=== PATIENT | male | born 1945 | race Two or more races ===

== ENCOUNTER 2024-08-11 16:37 | Emergency (ER) | payer OTHER, MEDICAID, SELFPAY ==
[2024-08-11 16:38] VITALS: BP 99/63; PULSE 85; RESP 16; TEMP 37.2; O2SAT 95
--- NOTE | 2024-08-11 17:21 | EDNOTE_ITS ---
ED General RME/HPI General Chief complaint: Wound/Laceration Stated complaint: WORSENING WOUND RIGHT BUTTOCK Time Seen by Provider: 08/11/24 17:10 Arrival date/time: 08/11/24 16:37 This is an 79-year-old male that is brought in by ambulance with complaints of wound to right buttocks. Patient currently living at [facility]. Per EMS patient has been getting treatment for this wound for quite some time but it is not healing and it is getting worse. No reports of fever. Patient has a history of stroke with left hemiparesis/weakness, anxiety, iron deficiency anemia, vascular dementia, hyperlipidemia high blood pressure. Patient on Eliquis and Plavix.. Related Data Home Medications ?Medication ?Instructions ?Recorded ?Confirmed doxazosin 2 mg tablet 2 mg PO HS 06/17/21 06/07/22 atorvastatin 10 mg tablet (Lipitor) 10 mg PO HS 06/07/22 acetaminophen 325 mg tablet 650 mg PO Q6H 06/07/2208/25 bisacodyl 10 mg rectal suppository 10 mg MS Q72H 06/0706/07/22 (Dulcolax (bisacodyl)) divalproex 125 mg tablet,delayed 125 mg PO BID 3 06/07/22 release donepezil 10 mg tablet (Aricept) 10 mg PO HS 06/07/22 06/07/22 magnesium hydroxide 400 mg/5 mL 30 ml PO Q72H 06/07/22 06/07/22 oral suspension (Milk of Magnesia) memantine 10 mg tablet 10 mg PO QDAY 06/07/2206/07 metformin 500 mg tablet 500 mg PO BID 06/07/2206/07 sodium phosphates 19 gram-7 118 ml MS Q72H 06/07/22 gram/118 mL enema (Fleet Enema) tuberculin PPD 1 unit/0.1 mL See Rx Instructions .Rout e .COMPLEX 06/07/22 06/07/22 intradermal injection solution Previous Rx's ?Medication ?Instructions ?Recorded clopidogrel 75 mg tablet (Plavix) 75 mg PO QDAY #30 ta bs 08/10/16 doxycycline hyclate 100 mg tablet 100 mg PO BID 30 day s #60 tabs 08/11/24 Allergies Allergy/AdvReac Type Severity Reaction Status Date / Time Penicillins Allergy Mild Rash Verified 02/22/21 10:32 wool Allergy Unknown Verified 02/22/21 10:32 Review of Systems Review of Systems Systems Reviewed: All systems reviewed, normal except as documented Past Medical History Past Medical History NEUROLOGIC: Positive Neurological Disorders and Cerebrovascular Accident (permanent left side droop) CARDIAC: Positive Cardiac Disorders, Hypercholesterolemia and Hypertension RESPIRATORY: Positive Pneumonia (covid in 2020) GASTROINTESTINAL: Positive Gastrointestinal Disorders, Diverticulitis and Obesity GENITOURINARY: Positive Benign Prostatic Hyperplasia ENDOCRINE: Positive Endocrine Disorders and Diabetes Mellitus Type 2 OTHER HISTORY: Positive Hospitalization and Falls Surgical History SURGICAL: Positive Tonsillectomy Social History SMOKING STATUS: Unknown if ever smoked SUBSTANCE USE: does not use ED Exam General General appearance: Present alert and in no apparent distress Head Head exam: Present atraumatic Eye Eye exam: Present EOMI ENT ENT exam: Present normal exam, normal oropharynx and mucous membranes moist Neck Neck exam: Present normal inspection, full ROM and trachea midline Chest Chest inspection: Present normal inspection and symmetric chest wall rise Respiratory Respiratory exam: Present normal lung sounds bilaterally Cardiovascular Cardiovascular exam: Present regular rate, normal rhythm and normal heart sounds Abdominal Exam Abdominal exam: Present soft Extremities Exam Extremities exam: Present full ROM Back Exam Back exam: Present normal inspection and full ROM Neurological Exam Neurological exam: Present alert and other (very hard of hearing, gen weakness but weaker on left side than right ) Psychiatric Psychiatric exam: Present normal affect and normal mood Skin Skin exam: Present warm and dry (There is a wound that is approximately 4 x 4 cm depth inside is approximately 2 cm and this wound is located on the left buttock there is 2 small wounds right above it 1 is approximately 3 mm and the other 1 is approximately 5 mm) Course Quality Measures none Orders Category Date Time Status COVID-19 Screening Questionnaire NOW Care 08/11/24 19:49 Completed Referral Wound Care Stat Cons 08/11/24 23:02 Active XR sacrum coccyx min 2V Stat Exams 08/11/24 17:25 Completed Blood Culture (Lab) Stat Lab 08/11/24 21:12 Completed CBC Stat Lab 08/11/24 17:55 Completed CRP [C-Reactive Protein] Stat Lab 08/11/24 17:55 Completed Comprehensive Metabolic Panel Stat Lab 08/11/24 17:55 Completed PT [Prothrombin Time with INR] Stat Lab 08/11/24 17:55 Completed Levofloxacin/D5w 750Mg Ivpb [Levaquin Ivpb] Med 08/11/24 22:34 Discontinued 750 mg in 150 ml IV X1 Vancomycin Pharmacy to Dose Med 08/11/24 19:45 Discontinued 1 each IV QDAY Vancomycin/Ns 1 gm Ivpb 200 ml Med 08/11/24 20:30 Discontinued IV Q100M Vital Signs Vital signs: Vital Signs Temperature 98.9 F 08/11/24 16:38 Pulse Rate 85 08/11/24 16:38 Respiratory Rate 16 08/11/24 16:38 Blood Pressure 99/63 08/11/24 16:38 Pulse Oximetry (%) 95 08/11/24 16:38 Oxygen Delivery Method Room Air 08/11/24 16:38 [facility] Patient data External records reviewed:: [facility] previous records Clinical information provided by:: patient Social determinants that could affect healthcare access:: other (specify) (lives in a long term ) Patient has the following chronic illnesses:: see hpi How is presenting disease/condition affected by chronic disease/condition?: e xacerbated by Evaluation data The following diagnostics were reviewed and interpreted by me:: lab results and radiology exam(s) Lab and/or radiology exams considered but not ordered:: none Interpretation Summary: see note Medications Medications considered but not ordered:: none Medication administrations:: Medication Administration History Discontinued Medications Vancomycin/Sodium Chloride (Vancomycin/Ns 1 Gm Ivpb) 200 mls @ 120 mls/hr IV Q100M [facility] Stop: 08/11/24 23:49 Last Infusion: 08/12/24 00:54 Dose: Infused Documented By: Admin: 08/11/24 23:02 Dose: 120 mls/hr Documented By: Infusion: 08/11/24 23:02 Dose: Infused Documented By: Admin: 08/11/24 21:21 Dose: 120 mls/hr Documented By: TREVER Levofloxacin/Dextrose (Levaquin Ivpb) 750 mg in 150 mls @ 100 mls/hr IV X1 ONE Stop: 08/12/24 00:03 Last Infusion: 08/12/24 03:00 Dose: Infused Documented By: Admin: 08/12/24 00:53 Dose: 100 mls/hr Documented By: TREVER Pharmacy Consult (Vancomycin Pharmacy To Dose 1 Each Each) 1 each IV QDAY [facility] Stop: 09/10/24 19:44 see [facility] Consultations Consultation(s) initiated? (list below): Yes Diagnosis Differential Diagnosis ED Complaint MDM: Osteomyelitis, sepsis, UTI Most likely diagnosis given after review of the tests above:: Osteomyelitis Admission Indicated Admission indicated?: not indicated Explain why admission is indicated or not indicated:: patient will be treated as an outpatient Admission Request Was there a request for admission?: Yes Admission Attestation Admission request attestation: Discussed case with [] from Hospitalist service regarding admission. Discussed patients ED course, exam findings, labs, and radiology results. The Hospitalist [agrees,declines] to accept the patient for admission. Disposition Plan Disposition Plan: Discharge Discharge Attestation Discharge Attestation: The patient and all family members were given an opportunity to ask questions and understood the discharge instructions. Discharge instructions specifically effects, indications for sooner follow up or return to the emergency department, and the expected course of current diagnosis. Patient condition: Stable Medical Decision Making MDM Narrative MDM Narrative: coccyx and sacram x ray: Findings: Large soft tissue defect posterior to the coccygeal segments Cortical bone destruction involving the distal coccygeal segments No fracture Severe osteopenia Impression: Large soft tissue defect posterior to the coccyx with osteomyelitis coccygeal segments I looked over patient's records from facility and it looks like they did start patient on doxycycline and Flagyl on August 07, 2024. Labs reviewed. Patient CBC 9.3 hemoglobin 11.1 hematocrit 33.9 BMP for the most part unremarkable. Patient's blood glucose is 188. CRP is 3.7 patient's PT 12.3. Will tx for osteomyelitis. Will treat patient with vancomycin and because of allergy to penicillin we will hold off on Zosyn. I ordered Levaquin. I spoke to hospitalist team to try to admit patient. Hospitalist team states that patient will not be admitted at this time. Patient antibiotics will be changed to doxycyline and Levaquin. They want patient's labs done weekly with a CBC, CMP, and CRP. They also want a referral to wound care. They want patient to be follow-up with his primary provider in 1 to 2 days. Patient is to come back to the emergency room if symptoms change or worsen. I spoke to patient daughter Romy at [phone]. She seems to be upset about patient not being admitted to the hospital. I explained to her that if she wants patient to be changed to a different facility they can do so at the long term. I told her that she needs to talk to them and let them know that if she does not want to be in that facility she can be moved to a different one. spoke to Evelina Kerr, soical worker at [facility] and informed her about patient and family wanting her to go to a different nursing facility. Differential Diagnosis Differential Diagnosis: Osteomyelitis, sepsis, UTI Lab Data 08/11/24 17:55 08/11/24 17:55 Labs: Lab Results 08/11/24 Range/Units 17:55 WBC 9.3 (3.8-10.6) Thou/mm3 RBC 3.78 L (4.50-5.90) Miln/mm3 Hgb 11.1 L (13.5-16.0) g/dL Hct 33.9 L (41.0-53.0) % MCV 90 (80-100) fL MCH 29.4 (25.0-35.0) pg MCHC 32.7 (31.0-37.0) g/dl RDW Std Deviation 48.6 H (35.1-43.9) fL Plt Count 275 (140-440) Thou/mm3 Neut % (Auto) 77 (37-80) % Lymph % (Auto) 12 (10-50) % [place] % (Auto) 9 (0-12) % Eos % (Auto) 2 (0-10) % Baso % (Auto) 0 (0-2.5) % Neut # (Auto) 7.1 (1.8-7.7) Thou/mm3 Lymph # (Auto) 1.1 (1.0-4.8) Thou/mm3 [place] # (Auto) 0.8 (0.0-0.8) Thou/mm3 Eos # (Auto) 0.1 (0.0-0.5) Thou/mm3 Baso # (Auto) 0.0 (0.0-0.2) Thou/mm3 Immature Gran # (Auto) 0.10 H (0.00-0.00) Thou/mm3 Absolute Nucleated RBC 0.00 (0.00-0.00) Thou/mm3 Immature Gran % 1 H (0-0) % Nucleated RBC % 0 (0) /100 WBC PT 12.3 H (9.0-12.2) Seconds INR 1.1 (0.9-1.3) Sodium 142 (136-145) mMol/L Potassium 4.0 (3.4-5.1) mMol/L Chloride 110 H (98-107) mMol/L Carbon Dioxide 25.7 (20.0-31.0) mMol/L Anion Gap 6 L (7-16) BUN 19 (9-23) mg/dL Creatinine 0.8 (0.6-1.3) mg/dL Estim Creat Clear Calc Not Performed. eGFR > 60 (60 - ) See Note BUN/Creatinine Ratio 24 H (12-20) Ratio Glucose 188 H (74-106) mg/dL Calculated Osmolality 290 (275-295) Calcium 8.9 (8.3-10.6) mg/dL Corrected Calcium 9.5 (8.5-10.1) mg/dL Total Bilirubin 0.3 (0.3-1.2) mg/dL AST 14 (0-34) U/L ALT 15 (10-49) U/L Alkaline Phosphatase 109 (46-116) U/L C-Reactive Prot, Quant 3.7 H (0.0-0.9) mg/dL Total Protein 6.2 (5.7-8.2) gm/dL Albumin 3.3 L (3.4-4.8) gm/dL Globulin 2.9 (2.3-3.5) gm/dL Albumin/Globulin Ratio 1.1 L (1.2-2.2) Discharge Plan Plan Patient Disposition: Xfer Skilled Nsg Fac (SNF) Patient condition on transfer: Stable Prescriptions/Referrals Prescriptions/Med Rec: New doxycycline hyclate 100 mg tablet 100 mg PO BID 30 Days Qty: 60 0RF No Action clopidogrel [Plavix] 75 MG tablet 75 mg PO QDAY Qty: 30 0RF doxazosin 2 mg Tablet 2 mg PO HS atorvastatin [Lipitor] 10 MG tablet 10 mg PO HS metformin 500 mg Tablet 500 mg PO BID acetaminophen 325 mg Tablet 650 mg PO Q6H tuberculin PPD 1 unit/0.1 mL Solution See Rx Instructions .ROUTE .COMPLEX Rx Instructions: 0.1 TB unit every year donepezil [Aricept] 10 mg Tablet 10 mg PO HS magnesium hydroxide [Milk of Magnesia] 400 mg/5 mL Suspension 30 ml PO Q72H bisacodyl [Dulcolax (bisacodyl)] 10 mg Suppository 10 mg MS Q72H divalproex 125 mg Tablet,Delayed Release (Dr/Ec) 125 mg PO BID Fleet Enema 19-7 gram/118 mL Enema 118 ml MS Q72H memantine 10 mg tablet 10 mg PO QDAY Referrals: Minesh Land MD [Primary Care Provider] - In 1 week Problem List Clinical Impression: Osteomyelitis, Diabetes mellitus, Buttock wound Patient/Caregiver Discharge Instructions Discharge Activity: activity as tolerated Education Materials: Osteomyelitis Dc Additional Instructions: Today you were diagnosed with osteomyelitis. You will be discharged on 2 antibiotics that you will be taking for the next 6 months. The 2 antibiotics are doxycycline and Levaquin. Labs will need to be done weekly to check a CBC, CRP, and CMP. Today you were prescribed Levaquin for 1 week and primary provider will need to prescribe this for the next 6 months and dose adjust if needed. Doxycycline will need to be given as well for 6 months to treat for osteomyelitis. I ordered a referral to wound care. Patient will need to be seen by primary provider in 1 to 2 days. Come back to the emergency room if symptoms change or worsen. Print Language: [place] Stand Alone Forms: Jenny Award Info., Patient Portal Info Letter PA/ARCHITECTURE ANALYST Supervising Physician PA/FRANCESCO Supervising Physician: kennedi
--- NOTE | 2024-08-11 17:25 | XR_ITS ---
Examination: Sacrum and coccyx 3 views Technique: AP, inclined AP, lateral sacrum and coccyx 3 views. Findings: Large soft tissue defect posterior to the coccygeal segments Cortical bone destruction involving the distal coccygeal segments No fracture Severe osteopenia Impression: Large soft tissue defect posterior to the coccyx with osteomyelitis coccygeal segments
[2024-08-11 18:11] LABS: Basophils % (Auto) 0 % (0-2.5); Eosinophils # (Auto) 0.1 Thou/mm3 (0.0-0.5); Eosinophils % (Auto) 2 % (0-10); Hematocrit 33.9 % (41.0-53.0); Hemoglobin 11.1 g/dL (13.5-16.0); Immature Granulocytes % (Auto) 1 % (0-0); Lymphocytes # (Auto) 1.1 Thou/mm3 (1.0-4.8); Lymphocytes % (Auto) 12 % (10-50); Mean Corpuscular HGB Conc 32.7 g/dl (31.0-37.0); Mean Corpuscular Hemoglobin 29.4 pg (25.0-35.0); Mean Corpuscular Volume 90 fL (80-100); Monocytes # (Auto) 0.8 Thou/mm3 (0.0-0.8); Monocytes % (Auto) 9 % (0-12); Neutrophils # (Auto) 7.1 Thou/mm3 (1.8-7.7); Neutrophils % (Auto) 77 % (37-80); Nucleated Red Blood Cell % 0 /100 WBC (0); Platelet Count 275 Thou/mm3 (140-440); RDW Standard Deviation 48.6 fL (35.1-43.9); Red Blood Count 3.78 Miln/mm3 (4.50-5.90); White Blood Count 9.3 Thou/mm3 (3.8-10.6)
[2024-08-11 18:23] LABS: INR 1.1 (0.9-1.3); Prothrombin Time 12.3 Seconds (9.0-12.2)
[2024-08-11 18:28] LABS: Alanine Aminotransferase 15 U/L (10-49); Albumin, Serum 3.3 gm/dL (3.4-4.8); Albumin/Globulin Ratio 1.1 (1.2-2.2); Alkaline Phosphatase 109 U/L (46-116); Anion Gap 6 (7-16); Aspartate Amino Transferase 14 U/L (0-34); BUN/Creatinine Ratio 24 Ratio (12-20); Bilirubin,Total 0.3 mg/dL (0.3-1.2); Blood Urea Nitrogen 19 mg/dL (9-23); C-Reactive Protein 3.7 mg/dL (0.0-0.9); Calcium 8.9 mg/dL (8.3-10.6); Calcium (Corrected) 9.5 mg/dL (8.5-10.1); Carbon Dioxide 25.7 mMol/L (20.0-31.0); Chloride 110 mMol/L (98-107); Creatinine (Component) 0.8 mg/dL (0.6-1.3); Globulin 2.9 gm/dL (2.3-3.5); Glucose 188 mg/dL (74-106); Osmolality,Calculated 290 (275-295); Sodium 142 mMol/L (136-145); Total Protein 6.2 gm/dL (5.7-8.2); eGFR > 60 See Note
[2024-08-11 19:49] VITALS: BMI 25.8
[2024-08-11 20:20] VITALS: BP 112/74; PULSE 78; RESP 17; TEMP 36.6; O2SAT 95
[2024-08-11] MEDS: VANCOMYCIN/NS 1 GM IVPB 200 ML IV ×2 (21:21→23:02)
--- NOTE | 2024-08-11 22:32 | ESCONSULT_ITS ---
<Statement entered by Kennteh Kaur MD - 08/13/24 05:42> I reviewed above note and agree with findings and plans. I have also personally examined the patient with medicine team and went over assessment and plan with medical team including leadership program intern and resident physician. HPI Data of Consult Primary Care Provider: Minesh Land MD Consult Narrative History of present illness: HPI is limited as patient is poor historian Ej is a 79 y/o male with PMHx of CVA with residual left-sided facial weakness and hemiparesis, vascular dementia, moderate dementia, COPD, hypertension, type 2 diabetes mellitus was brought into the emergency department from [facility] for an evaluation of a right sided sacral wound. It is unsure if this has developed more recently than not however this has been a chronic development for patient. Patient lives at [facility], family not present at bedside when examined. Patient denies having any fever, chills, however does endorse some sacral pain. He is unsure if he has had these before. It was relayed to us that patient has gotten wound care in the past however it has not helped him much. No other complaints at this time ED course: Patient arrived to the ED with a blood pressure of 99/63, heart rate 85, respiratory of 16, temperature of 98.9, oxygen saturation 95% on room air. He was worked and was found to have a sodium 142, potassium 4, BUN/creatinine of 19 and 0.8 respectively, bicarb 26, glucose 188, CRP 3.7. Sacral and coccyx x-ray was done which showed large soft tissue defect posterior to the coccyx with osteomyelitis on coccygeal segments. Levaquin and vancomycin was started for patient. Medicine was consulted for further evaluation of the patient. Past medical history: As above Surgical history unknown Medicines: Tylenol, Dulcolax, Lipitor, Plavix, donezepil, divalproex, Levaquin, memantine, metformin, milk of mag, aspirin, Flagyl, doxycycline, vitamin C, metoprolol XL 25, Eliquis 5 mg, lisinopril Allergies: Penicillins gives rash History: Limited family history Social history: Comes from [facility], denies smoking, alcohol or drug use. cc:: cc: Review of Systems Review of Systems Narrative Review of Systems: Constitutional: No fever, chills, fatigue, weakness, weight loss HEENT: No eye pain, vision loss, ear pain, hearing loss, dysphagia, Cardiovascular: No chest pain, palpitations, edema, pain with walking Respiratory: No cough, shortness of breath, wheezing GI: No NVD, abdominal pain, constipation, blood in stool, loss of appetite, heartburn Extremities: No presence of pitting edema MSK: No back pain, joint pain, joint swelling Back: Sacral pain Neuro: No dizziness, numbness, weakness, headaches, seizures, tremors Psych: No anxiety, depression Exam Vital Signs Temp Pulse Resp BP Pulse Ox O2 Del Method 97.8 F 78 47 H 112/74 95 Room Air 08/11/24 20:20 08/11/24 20:20 08/11/24 20:20 08/11/24 20:20 08/11/24 20:20 08/11/24 20:20 Narrative Exam General: AAOx2, NAD, HEENT: Dry mucous membranes, conjunctiva clear, EOMI, PERRLA, poor dentition Cardiovascular: EJM heard CAMILO, radial pulses +2 bilat, Pulmonary: CTAB bilat no cough, no wheezing GI: No tenderness to light or deep palpitation, no guarding, rigidity, rebound tenderness or distension Extremities: No presence of trace or pitting edema in lower extremities bilaterally, dorsalis pedis pulses +2 bilaterally Back: Stage 3 sacral pressure wound located on R side, no bone visualized, however 3 cm deep, visualization of eroded fat and muscle Neuro: AAOx2, Chronic L sided facial droop from previous CVA Results Labs 08/11/24 17:55 08/11/24 17:55 Labs: Short CBC 08/11/24 Range/Units 17:55 WBC 9.3 (3.8-10.6) Thou/mm3 Hgb 11.1 L (13.5-16.0) g/dL Hct 33.9 L (41.0-53.0) % Plt Count 275 (140-440) Thou/mm3 BMP 08/11/24 17:55 Sodium 142 Potassium 4.0 Chloride 110 H Carbon Dioxide 25.7 BUN 19 Creatinine 0.8 Glucose 188 H Calcium 8.9 Liver Function 08/11/24 Range/Units 17:55 Total Bilirubin 0.3 (0.3-1.2) mg/dL AST 14 (0-34) U/L ALT 15 (10-49) U/L Alkaline Phosphatase 109 (46-116) U/L Albumin 3.3 L (3.4-4.8) gm/dL Quality Measures Quality Measures none Advance care planning discussed with:: patient Medications Home Medications and Allergies Home Medications ?Medication ?Instructions ?Recorded ?Confirmed ?Type doxazosin 2 mg tablet 2 mg PO HS 06/17/21 06/07/22 History atorvastatin 10 mg tablet (Lipitor) 10 mg PO HS 06/07/22 History acetaminophen 325 mg tablet 650 mg PO Q6H 06/07/2208/25 History bisacodyl 10 mg rectal suppository 10 mg NV Q72H 06/0706/07/22 History (Dulcolax (bisacodyl)) divalproex 125 mg tablet,delayed 125 mg PO BID 3 06/07/22 History release donepezil 10 mg tablet (Aricept) 10 mg PO HS 06/07/22 06/07/22 History magnesium hydroxide 400 mg/5 mL 30 ml PO Q72H 06/07/22 06/07/22 History oral suspension (Milk of Magnesia) memantine 10 mg tablet 10 mg PO QDAY 06/07/2206/07 History metformin 500 mg tablet 500 mg PO BID 06/07/2206/07 History sodium phosphates 19 gram-7 118 ml NV Q72H 06/07/22 History gram/118 mL enema (Fleet Enema) tuberculin PPD 1 unit/0.1 mL See Rx Instructions .Rout e .COMPLEX 06/07/22 06/07/22 History intradermal injection solution Allergies Allergy/AdvReac Type Severity Reaction Status Date / Time Penicillins Allergy Mild Rash Verified 02/22/21 10:32 wool Allergy Unknown Verified 02/22/21 10:32 Visit Medications Vancomycin/Sodium Chloride (Vancomycin/Ns 1 Gm Ivpb) 200 mls @ 120 mls/hr IV Q100M [facility] Stop: 08/11/24 23:49 Last Admin: 08/11/24 21:21 Dose: 120 mls/hr Pharmacy Consult (Vancomycin Pharmacy To Dose 1 Each Each) 1 each IV QDAY [facility] Stop: 09/10/24 19:44 Assessment & Plan Plan Assessment Ej is a 79 y/o male with PMHx of CVA with residual left-sided facial weakness and hemiparesis, vascular dementia, moderate dementia, COPD, hypertension, type 2 diabetes mellitus was brought into the emergency department from [facility] for an evaluation of a sacral wound. #Sacral wound, right side, stage III #Osteomyelitis Patient appears to have stage III right sided sacral wound, no bone visualized Patient did not come in septic and did not have a fever Patient appears to have chronic pressure wound from being in bed Patient has had some wound care in the past however will need to have consistent wound care At this time we do not recommend admission into the hospital and recommend treat outpatient with 6 weeks of antibiotics and wound care There seems to be some concern for changing to a different [place] [facility], we will defer to ED for this We will treat for Pseudomonas and MRSA due to patient's history Plan: ? Levaquin 750 mg daily for 6 weeks ? Doxycycline 100 mg twice daily for 6 weeks ? Weekly labs including ESR, CRP, CMP, CBC ? Follow-up with primary care every week ? Wound care referral Patient seen and care discussed with my attending physician, Dr. Natasha Burgos, PGY-1
[2024-08-11 22:42] VITALS: BP 102/63; PULSE 83; RESP 18; O2SAT 97
[2024-08-12] VITALS: BP 112/68; PULSE 79; RESP 16; O2SAT 100
[2024-08-12] MEDS: LEVOFLOXACIN/D5W 750MG IVPB 750 MG/150 ML BAG 100 MG IV (00:53)
[2024-08-12 02:00] VITALS: BP 101/60; PULSE 72; RESP 15; O2SAT 96
[2024-08-12 03:19] VITALS: BP 102/64; PULSE 76; RESP 17; TEMP 36.7; O2SAT 96
--- NOTE | 2024-08-12 03:27 | PC.NURSE ---
Pt transferred to [facility] per EMS. [facility] attemoted to call report 4 times and was forwarded to voice message
== END 2024-08-12 03:30 | disposition skilled nursing facility (03) ==
PROVIDERS: Nurse Practitioner Family; Emergency Provider Emergency Medicine; PCP Family Medicine
DX: E11.69 Type 2 diabetes mellitus with other specified complication (principal); M46.28 Osteomyelitis of vertebra, sacral and sacrococcygeal region; I69.354 Hemiplegia and hemiparesis following cerebral infarction affecting left non-dominant side; F01.50 Vascular dementia, unspecified severity, without behavioral disturbance, psychotic disturbance, mood disturbance, and anxiety; E78.5 Hyperlipidemia, unspecified; F41.9 Anxiety disorder, unspecified
CPT/HCPCS: 36415; 72220; 80053; 85025; 85610; 86140; 87040; 87077; 87186; 96365; 96366; 96367; 99284; J1956; J3370

== ENCOUNTER 2024-10-09 13:38 | Emergency (ER) | payer OTHER, MEDICAID, SELFPAY ==
[2024-10-09] VITALS (9 sets, daily range): BP systolic 95–122; BP diastolic 48–72; PULSE 70–88; RESP 16–19; TEMP 36.4–37; O2SAT 94–99; BMI 24.0
--- NOTE | 2024-10-09 14:38 | PD.EDRME ---
Rapid Medical Screening Exam RME Arrival date/time: 10/09/24 13:38 Chief Complaint: Abdominal Pain Time Seen by Provider: 10/09/24 14:22 Vital signs: Vital Signs Temperature 98.4 F 10/09/24 13:42 Pulse Rate 80 10/09/24 13:42 Respiratory Rate 18 10/09/24 13:42 Blood Pressure 113/69 10/09/24 13:42 Pulse Oximetry (%) 94 L 10/09/24 13:42 Oxygen Delivery Method Room Air 10/09/24 13:42 Vital signs reviewed by provider: Yes RME Narrative: 79-year-old male presents to the ED via EMS with a complaint of right lower quadrant abdominal pain. Apparently this pain has been going on for 3 days in the [place] [facility] in which he resides. He was sent in for further workup and evaluation. Labs, CT scan, urinalysi, chest x-ray ordered and pending.
--- NOTE | 2024-10-09 14:39 | XR_ITS ---
Examination: CT abdomen with intravenous contrast CT pelvis with intravenous contrast 2-D coronal reconstructions 2-D sagittal reconstructions Date and time of exam: October 09, 2024 1642 hours Comparison October 07, 2015 INDICATIONS: Generalized abdominal pain today, history of perianal abscess CTDI: vol (mGy) 6.4 DLP: (mGycm) 460 Technique: Multiple axial sections of the abdomen and pelvis have been obtained. 64 slice high-resolution scanner used. 3 mm axial sections have been obtained, post intravenous injection Isovue 370 2-D sagittal, coronal reconstructions obtained. Low dose protocols were performed. One or more of the following dose reduction techniques were used; automated exposure control, adjustment of the mA and/or KV according to patient size, use of iterative reconstruction technique. Findings: Moderate enlargement left atrium mild enlargement left ventricle Atelectasis in the right lower lobe No focal liver lesion No gallstones Spleen not enlarged No pancreatic or adrenal mass No renal or ureteral calculi 4.4 cm right renal cyst Heavy abdominal aortic calcification No bowel obstruction Normal appendix No diverticulitis Markedly abnormal thickening of the urinary bladder wall up to 11 mm Large amounts of stool in the rectum with significant thickening of the rectal wall diffusely Soft tissue defect extending from the posterior margin of the anus to the skin surface with scrotal edema and perirenal inflammatory change surrounding the anus although no obvious abscess IMPRESSION: Marked thickening of the urinary bladder wall, cystitis including the differential Large amounts of stool in the rectum with significant thickening of the rectal wall which could related to proctitis, other etiologies not excluded. Perianal inflammatory change with soft tissue defect extending from the posterior anal wall to the skin surface and edema in the perineum extending into the scrotum Recommend testicular sonography follow-up
--- NOTE | 2024-10-09 15:00 | PD.EDABDPN ---
ED Abdominal Pain RME/HPI General Chief Complaint: Abdominal Pain Stated complaint: ABDOMINAL PAIN Time seen by provider: 10/09/24 14:22 Arrival date/time: 10/09/24 13:38 RME / HPI RME / HPI narrative: 79-year-old male presents to the ED via EMS with a complaint of right lower quadrant abdominal pain. Apparently this pain has been going on for 3 days in [facility]. He was sent in for further workup and evaluation. Labs, CT scan, urinalysi, chest x-ray ordered and pending. Related Data Home Medications ?Medication ?Instructions ?Recorded ?Confirmed doxazosin 2 mg tablet 2 mg PO HS 06/17/21 06/07/22 atorvastatin 10 mg tablet (Lipitor) 10 mg PO HS 11/22/21 06/07/22 acetaminophen 325 mg tablet 650 mg PO Q6H 06/07/22 06/07/22 bisacodyl 10 mg rectal suppository 10 mg WI Q72H 06/07/22 06/07/22 (Dulcolax (bisacodyl)) divalproex 125 mg tablet,delayed 125 mg PO BID 06/07/22 06/07/22 release donepezil 10 mg tablet (Aricept) 10 mg PO HS 06/07/22 06/07/22 magnesium hydroxide 400 mg/5 mL 30 ml PO Q72H 06/07/22 06/07/22 oral suspension (Milk of Magnesia) memantine 10 mg tablet 10 mg PO QDAY 06/07/22 06/07/22 metformin 500 mg tablet 500 mg PO BID 06/07/22 06/07/22 sodium phosphates 19 gram-7 118 ml WI Q72H 06/07/22 06/07/22 gram/118 mL enema (Fleet Enema) tuberculin PPD 1 unit/0.1 mL See Rx Instructions .Route .COMPLEX 06/07/22 06/07/22 intradermal injection solution Previous Rx's ?Medication ?Instructions ?Recorded clopidogrel 75 mg tablet (Plavix) 75 mg PO QDAY #30 tabs 08/10/16 mesalamine 1,000 mg rectal 1 g WI .QHS PROCTITIS #30 ea 10/09/24 suppository Allergies Allergy/AdvReac Type Severity Reaction Status Date / Time Penicillins Allergy Mild Rash Verified 02/22/21 10:32 wool Allergy Unknown Verified 02/22/21 10:32 Review of Systems Review of Systems Systems Reviewed: All systems reviewed, normal except as documented Past Medical History Past Medical History NEUROLOGIC: Positive Neurological Disorders, Cerebrovascular Accident, Transient Ischemic Attacks (TIA) and Dementia CARDIAC: Positive Hypercholesterolemia and Hypertension; Negative Cardiac Disorders or Congestive Heart Failure RESPIRATORY: Positive Respiratory Disorders (Mass in lung), Chronic Obstructive Pulmonary Disease (COPD) and Pneumonia (covid in 2020); Negative Asthma GASTROINTESTINAL: Positive Gastrointestinal Disorders, Diverticulitis and Obesity GENITOURINARY: Positive Benign Prostatic Hyperplasia; Negative Genitourinary Disorders or Renal Disease MUSCULOSKELETAL: Negative Musculoskeletal Disorders ENT: Positive Cataracts (BILATERAL) ENDOCRINE: Positive Endocrine Disorders and Diabetes Mellitus Type 2; Negative Diabetes Mellitus Type 1 HEMATOLOGIC: Negative Blood Disorders or Sickle Cell Disease OTHER HISTORY: Positive Hospitalization and Falls; Negative Autoimmune Disease, Organ Transplant, Clostridium Difficile or Cancer Surgical History SURGICAL: Positive Tonsillectomy; Negative Abdominal Surgery, Nephrectomy, Neurologic Surgery, Vasectomy or Organ Transplant Social History SMOKING STATUS: Smoker, status unknown SUBSTANCE USE: does not use ED Exam Narrative Physical exam: Alert, afebrile and non-toxic appearing 79 year old male, no acute distress. Vital signs stable. Lung are clear, RRR, Abdomen is non-distended, with mild generalized tenderness. Course Course Course Narrative: CBC abnormalities: WBC 11.8, H&H 11.8/35.6. CMP abnormalities: Chloride 110, BUN 29, Glucose 144. Urine with [address] Abd/Pel reveals: Marked thickening of the urinary bladder wall, cystitis including the differential. Large amounts of stool in the rectum with significant thickening of the rectal wall which could related to proctitis, other etiologies not excluded. Perianal inflammatory change with soft tissue defect extending from the posterior anal wall to the skin surface and edema in the perineum extending into the scrotum. Scrotum US: Testicular flow is reduced bilaterally but no testicular torsion or infarction. No testicular mass. Quality Measures none Orders Category Date Time Status CT Screening NOW Care 10/09/24 14:[address] Screening X1 Care 10/09/24 14:39 Completed NPO STAT Care 10/09/24 14:[address] abdomen pelvis w con Stat Exams 10/09/24 14:39 Completed US scrotum Stat Exams 10/09/24 18:59 Completed Amylase Stat Lab 10/09/24 15:08 Completed CBC Stat Lab 10/09/24 15:08 Completed Comprehensive Metabolic Panel Stat Lab 10/09/24 15:08 Completed Lipase Stat Lab 10/09/24 15:08 Completed Urinalysis Stat Lab 10/09/24 15:08 Completed Urine Culture Stat Lab 10/09/24 15:08 Completed Vital Signs Vital signs: Vital Signs Temperature 98.4 F 10/09/24 13:42 Pulse Rate 80 10/09/24 13:42 Respiratory Rate 18 10/09/24 13:42 Blood Pressure 113/69 10/09/24 13:42 Pulse Oximetry (%) 94 L 10/09/24 13:42 Oxygen Delivery Method Room Air 10/09/24 13:42 Abdominal Pain MDM MDM Narrative MDM Narrative:: 79-year-old male presents to the ED via EMS with a complaint of right lower quadrant abdominal pain. Apparently this pain has been going on for 3 days in the [facility]. He was sent in for further workup and evaluation. Alert, afebrile and non-toxic appearing 79 year old male, no acute distress. Vital signs stable. Lung are clear, RRR, Abdomen is non-distended, with mild generalized tenderness. CBC abnormalities: WBC 11.8, H&H 11.8/35.6. CMP abnormalities: Chloride 110, BUN 29, Glucose 144. Urine with [address] Abd/Pel reveals: Marked thickening of the urinary bladder wall, cystitis including the differential. Large amounts of stool in the rectum with significant thickening of the rectal wall which could related to proctitis, other etiologies not excluded. Perianal inflammatory change with soft tissue defect extending from the posterior anal wall to the skin surface and edema in the perineum extending into the scrotum. Scrotum US: Testicular flow is reduced bilaterally but no testicular torsion or infarction. No testicular mass. Symptoms, exam and diagnostic studies are consistent with: Proctitis. Patient was discharged back to his care facility in stable condition. Patient/family advised to follow-up with their PCP in 24-48 hours. Encouraged to return to the ED for any new or worsening symptoms. Patient data External records reviewed:: [facility] Clinical information provided by:: EMS Social determinants that could affect healthcare access:: none Patient has the following chronic illnesses:: Perianal abscess, diverticulosis, diabetes, brainstem infarct, ALOC How is presenting disease/condition affected by chronic disease/condition?: uneffected by Evaluation data The following diagnostics were reviewed and interpreted by me:: lab results and radiology exam(s) Lab and/or radiology exams considered but not ordered:: N/a Interpretation Summary: as above Medications / Prescriptions Medications or Prescriptions considered but not ordered:: n/a Medication administrations:: n/a Consultations Consultation(s) initiated? (list below): Yes Consultation #1 (Physician, Specialty, Details): Discussed with Dr. Terry. Cortes to discharge back to care facility. Diagnosis Differential diagnosis abdominal pain: abdominal pain, acute appendicitis, constipation, gastroenteritis and small bowel obstruction Most likely diagnosis given after review of the tests above:: Proctitis Admission Indicated Admission indicated?: not indicated Explain why admission is indicated or not indicated:: Stable for discharge. Admission Request Was there a request for admission?: No Disposition Plan Disposition Plan: Transfer (back to care facility.) Discharge Plan Plan Patient Disposition: Xfer Alf Acute Discharge Disposition comment: Stable Prescriptions/Referrals Prescriptions/Med Rec: New mesalamine 1,000 mg suppository 1 g WI .QHS Qty: 30 0RF No Action clopidogrel [Plavix] 75 MG tablet 75 mg PO QDAY Qty: 30 0RF doxazosin 2 mg Tablet 2 mg PO HS atorvastatin [Lipitor] 10 MG tablet 10 mg PO HS metformin 500 mg Tablet 500 mg PO BID acetaminophen 325 mg Tablet 650 mg PO Q6H tuberculin PPD 1 unit/0.1 mL Solution See Rx Instructions .ROUTE .COMPLEX Rx Instructions: 0.1 TB unit every year donepezil [Aricept] 10 mg Tablet 10 mg PO HS magnesium hydroxide [Milk of Magnesia] 400 mg/5 mL Suspension 30 ml PO Q72H bisacodyl [Dulcolax (bisacodyl)] 10 mg Suppository 10 mg WI Q72H divalproex 125 mg Tablet,Delayed Release (Dr/Ec) 125 mg PO BID Fleet Enema 19-7 gram/118 mL Enema 118 ml WI Q72H memantine 10 mg tablet 10 mg PO QDAY Referrals: Minesh Land MD [Primary Care Provider] - In 1 week Problem List Clinical Impression: Proctitis Patient/Caregiver Discharge Instructions Education Materials: Anatomy of the Digestive System Additional Instructions: Follow-up with your primary care physician in 24 to 48 hours. Return to the ED for any new or worsening symptoms. Print Language: Uzbek Stand Alone Forms: Jenny Award Info., Patient Portal Info Letter PA/MEDICAL FILE CLERK Supervising Physician PA/MEDICAL FILE CLERK Supervising Physician: Dr. Fam
[2024-10-09 15:14] LABS: Collection Type, Urine Catheter
[2024-10-09 15:18] LABS: Basophils % (Auto) 0 % (0-2.5); Eosinophils # (Auto) 0.1 Thou/mm3 (0.0-0.5); Eosinophils % (Auto) 1 % (0-10); Hematocrit 35.6 % (41.0-53.0); Hemoglobin 11.8 g/dL (13.5-16.0); Immature Granulocytes % (Auto) 0 % (0-0); Immature Granulocytes Auto 0.04 Thou/mm3 (0.00-0.00); Lymphocytes # (Auto) 1.8 Thou/mm3 (1.0-4.8); Lymphocytes % (Auto) 15 % (10-50); Mean Corpuscular HGB Conc 33.1 g/dl (31.0-37.0); Mean Corpuscular Volume 91 fL (80-100); Monocytes # (Auto) 1.2 Thou/mm3 (0.0-0.8); Monocytes % (Auto) 10 % (0-12); Neutrophils # (Auto) 8.7 Thou/mm3 (1.8-7.7); Neutrophils % (Auto) 74 % (37-80); Nucleated Red Blood Cell % 0 /100 WBC (0); Platelet Count 194 Thou/mm3 (140-440); RDW Standard Deviation 55.4 fL (35.1-43.9); Red Blood Count 3.93 Miln/mm3 (4.50-5.90); White Blood Count 11.8 Thou/mm3 (3.8-10.6)
[2024-10-09 15:34] LABS: Alanine Aminotransferase 16 U/L (10-49); Albumin, Serum 3.6 gm/dL (3.4-4.8); Albumin/Globulin Ratio 1.4 (1.2-2.2); Alkaline Phosphatase 102 U/L (46-116); Amylase 101 U/L (30-118); Anion Gap 8 (7-16); Aspartate Amino Transferase 17 U/L (0-34); BUN/Creatinine Ratio 32 Ratio (12-20); Bilirubin,Total 0.4 mg/dL (0.3-1.2); Blood Urea Nitrogen 29 mg/dL (9-23); Calcium 8.8 mg/dL (8.3-10.6); Calcium (Corrected) 9.1 mg/dL (8.5-10.1); Carbon Dioxide 24.2 mMol/L (20.0-31.0); Chloride 110 mMol/L (98-107); Creatinine (Component) 0.9 mg/dL (0.6-1.3); Estimated Creatinine Clearance 53.9 mL/min (>60); Globulin 2.6 gm/dL (2.3-3.5); Glucose 144 mg/dL (74-106); Lipase 24 U/L (12-53); Osmolality,Calculated 291 (275-295); Potassium 4.7 mMol/L (3.4-5.1); Sodium 142 mMol/L (136-145); Total Protein 6.2 gm/dL (5.7-8.2); eGFR > 60 See Note
[2024-10-09 15:37] LABS: Bilirubin,Urine Negative (Negative); Blood,Urine Trace (Negative); Clarity,Urine Clear (Clear/Hazy); Color,Urine Yellow (Lt Yel-Yel); Glucose, Urine Negative (Negative); Hyaline Casts,Urine < 1 /hpf (0-1); Ketones,Urine Negative (Negative); Leukocyte Esterase,Urine Negative (Negative); Nitrite,Urine Negative (Negative); Protein,Urine Trace (Neg - Trace); RBC,Urine 6 /hpf (0-3); Specific Gravity,Urine 1.026 (1.001-1.035); Squamous Epithelial Cell,Urine < 1 /hpf (0-5); Urobilinogen,Urine Negative mg/dL (0.0-1.0); WBC,Urine 5 /hpf (0-5)
--- NOTE | 2024-10-09 17:35 | PC.NURSE ---
PATIENT GIVEN PHONE, WALLET, SUNGLASSES, AND ID CARD REQUESTED AND OK'D BY ER PROVIDER.
--- NOTE | 2024-10-09 18:59 | XR_ITS ---
Examination: Testicular sonography complete TECHNIQUE: Rincon scale sonographic images testes, assessment arterial inflow venous outflow Doppler spectrum analysis Examination date time October 09, 2024 1953 hours INDICATIONS: Altered mental status, generalized abdominal pain today history perirectal abscesses FINDINGS: Right testis 3.4 cm epididymis 25 mm Right epididymal cyst 2.2 cm Arterial flow to the testicle. No testicular mass Left testis 3.4 cm, epididymis 60 mm 8mm, 9 mm epididymal cyst Arterial flow of the testicle No testicular mass IMPRESSION: Testicular flow is reduced bilaterally but no testicular torsion or infarction No testicular mass
== END 2024-10-09 23:46 ==
PROVIDERS: Physician Assistant; Emergency Provider Emergency Medicine; PCP Family Medicine
DX: K62.89 Other specified diseases of anus and rectum (principal); N50.89 Other specified disorders of the male genital organs; R10.31 Right lower quadrant pain
CPT/HCPCS: 36415; 74177; 76870; 80053; 81001; 82150; 83690; 85025; 87086; 99285; A4649; Q9967

== ENCOUNTER → 2024-12-05 | Outpatient (CLI) | payer OTHER, MEDICAID, SELFPAY ==
--- NOTE | 2024-12-05 13:30 | XR_ITS ---
Examination: CT pelvis without intravenous contrast. 2-D sagittal and coronal reconstructions. Date and time of exam:December 05, 2024 1555 hours INDICATIONS: Bilateral hip pain several days CTDI: vol (mGy) :6.18 DLP: (mGycm) : 220 Technique: Multiple 3 mm axial sections of the pelvis have been obtained with the 64 slice high resolution scanner. 2-D sagittal and coronal reconstructions. Low dose protocols were performed. One or more of the following dose reduction techniques were used; automated exposure control, adjustment of the mA and/or KV according to patient size, use of iterative reconstruction technique. Findings: Heavy abdominal aortic calcification Abundant stool in the rectosigmoid Urinary bladder wall thickening up to 3 mm Transverse prostate dimension 4.9 cm Severe osteopenia Bones of the pelvis intact Moderate narrowing hip joints No hip or pelvic fracture No avascular necrosis IMPRESSION: Moderate bilateral hip osteoarthritis
== END | disposition home or self-care (01) ==
LOC: SCAT 13:45
PROVIDERS: PCP Family Medicine; Referring Provider Family Medicine; Visit Provider Family Medicine
DX: M16.0 Bilateral primary osteoarthritis of hip (principal)
CPT/HCPCS: 72192